=== PATIENT | male | born 1985 | race African-American/Black ===

== ENCOUNTER 2019-12-25 09:49 | Emergency (ER) | payer SELFPAY ==
[2019-12-25 09:54] VITALS: BP 144/82
[2019-12-25] MEDS ORDERED: KETOROLAC TROMETHAMINE 60 MG/2 ML SDV IM ONE (11:00)
[2019-12-25] MEDS ORDERED: LIDOCAINE 5% (700 MG) TRANSDERMAL ADH..PATCH TP ONE (11:00)
[2019-12-25] MEDS ORDERED: ACETAMINOPHEN 325 MG TABLET PO ONE (11:00)
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
== END 2019-12-25 11:33 | disposition home or self-care (01) ==
LOC: ER 09:49
DX: M54.42 Lumbago with sciatica, left side (principal); F17.210 Nicotine dependence, cigarettes, uncomplicated
CPT/HCPCS: 96372; 99283; J1885